=== PATIENT | female | born 2000 | race Caucasian/White ===

== ENCOUNTER 2023-11-07 14:36 | Emergency (ER) | payer BC, SELFPAY ==
[2023-11-07 14:44] VITALS: BP 102/71
--- NOTE | 2023-11-07 16:04 | ED.GENMED ---
History of Present Illness
<Melanie Young PA-C - Last Filed: 11/07/23 18:45>
General
Chief Complaint: Cold/Flu/URI Symptoms
Source: patient
Exam Limitations: none
Time Seen by Provider: 11/07/23 15:49
Nursing documentation reviewed up to this point in time: agreed with
Travel History
Have you had any contact with someone who has COVID-19?: No
Do you have any symptoms of coronavirus? Fever > 100 degrees, chills, cough, shortness of breath, sore throat, loss of taste or smell, muscle aches, or headache?: No
History of Present Illness
History of Present Illness:
Patient is a 23-year-old female with no significant past medical history presenting for evaluation of upper respiratory symptoms persisting over the past 10 days. Patient reports initial symptom onset about 10 days ago on 10/29/23 with swollen
tonsils with white patches. She was seen in urgent care at that time and started on empiric course of amoxicillin for presumed strep throat. Both rapid strep test and throat culture did come back negative. Patient did end up mostly completing
course of amoxicillin but stopped about 1 day early. Symptoms never fully resolved and over the past week progressed to fatigue, generalized body aches, and productive cough.
She denies any fever, chills, nausea, vomiting, or diarrhea. Patient denies any chest pain or shortness of breath. Patient last period was about 1 week ago.
Review of Systems
<Melanie Young PA-C - Last Filed: 11/07/23 18:45>
Review of Systems
Allergies reviewed?: Yes
All Other Systems: ROS reviewed and negative except as documented in HPI and ROS
Phy Exam
<Melanie Young PA-C - Last Filed: 11/07/23 18:45>
Physical Exam
Physical Exam:
Vitals: Patient's vital signs are stable. Afebrile
General: Patient is well appearing, no acute distress. Nontoxic-appearing
Skin: Warm and dry, no rashes or lesions. No evidence of jaundice
Head: Normocephalic, atraumatic
Eyes: Sclera nonicteric. EOMs intact. No nystagmus.
Throat: Erythema noted to posterior pharynx with some tonsillar edema. No evidence of tonsillar exudates. Uvula midline. Protecting airway. Trachea midline. No trismus.
Neck: Normal ROM, no cervical spine tenderness, no meningismus
Cardiac: Regular rate and rhythm, no murmurs.
Pulm: Normal respiratory effort, no wheezes, rales, rhonchi heard on exam.
Abdomen: No abdominal tenderness. No palpable organomegaly.
Extremities: No evidence of cyanosis or edema.
Neuro: AAOx3. CN II-XII intact. No focal neurologic deficits.
Psychiatric: Normal affect.
Course
<Melanie Young PA-C - Last Filed: 11/07/23 18:45>
Orders/Labs/Results
Orders:
Orders
11/07/23 16:12
0.9% Sodium Chloride 1000 ml [Nss] 1,000 ml IV BOLUS
Dexamethasone Sod Phosphate [Decadron] 10 mg IV NOW STA
11/07/23 16:13
Test Result ONCE
11/07/23 16:48
Complete Blood Count/With Diff Urgent
Comprehensive Metabolic Panel Urgent
HCG, Serum Qualitative Screen Urgent
Influenza A+B Rapid Molecular Urgent
VANE Source: Nasal Swab
Specimen Description:
11/07/23 16:53
COVID-19 Antigen Urgent
Source: Nasal Swab
Monotest Urgent
Abnormal Lab Results
11/07/23 11/07/23
16:48 16:53
RBC 4.10 L 10^6/uL
(4.20-5.40)
Hct 35.5 L %
(37.0-47.0)
Absolute Monos (auto) 0.7 H 10^3/uL
(0.1-0.6)
Glucose 109 H mg/dl
(70-99)
Monoscreen Positive A
(Negative)
11/07/23 16:48
11/07/23 16:48
Vital Signs
Initial and Last Documented VS:
Initial Vital Signs
Temp Pulse Resp BP Pulse Ox
98.2 F 88 18 102/71 99
11/07/23 14:44 11/07/23 14:44 11/07/23 14:44 11/07/23 14:44 11/07/23 14:44
Last Documented Vital Signs
Temp Pulse Resp BP Pulse Ox
98.2 F 88 18 113/75 99
11/07/23 14:44 11/07/23 14:44 11/07/23 14:44 11/07/23 16:34 11/07/23 17:00
<Linnette Simms MD - Last Filed: 11/07/23 17:04>
Orders/Labs/Results
Orders:
Orders
11/07/23 16:12
0.9% Sodium Chloride 1000 ml [Nss] 1,000 ml IV BOLUS
Dexamethasone Sod Phosphate [Decadron] 10 mg IV NOW STA
11/07/23 16:13
Test Result ONCE
11/07/23 16:48
Complete Blood Count/With Diff Urgent
Comprehensive Metabolic Panel Urgent
HCG, Serum Qualitative Screen Urgent
Influenza A+B Rapid Molecular Urgent
VANE Source: Nasal Swab
Specimen Description:
11/07/23 16:53
COVID-19 Antigen Urgent
Source: Nasal Swab
Monotest Urgent
Abnormal Lab Results
11/07/23 11/07/23
16:48 16:53
RBC 4.10 L 10^6/uL
(4.20-5.40)
Hct 35.5 L %
(37.0-47.0)
Absolute Monos (auto) 0.7 H 10^3/uL
(0.1-0.6)
Glucose 109 H mg/dl
(70-99)
Monoscreen Positive A
(Negative)
11/07/23 16:48
11/07/23 16:48
Vital Signs
Initial and Last Documented VS:
Initial Vital Signs
Temp Pulse Resp BP Pulse Ox
98.2 F 88 18 102/71 99
11/07/23 14:44 11/07/23 14:44 11/07/23 14:44 11/07/23 14:44 11/07/23 14:44
Last Documented Vital Signs
Temp Pulse Resp BP Pulse Ox
98.2 F 88 18 113/75 99
11/07/23 14:44 11/07/23 14:44 11/07/23 14:44 11/07/23 16:34 11/07/23 17:00
<Melanie Young PA-C - Last Filed: 11/07/23 18:45>
MDM/Problems Addressed
Differential Diagnosis Includes:
Not limited to: COVID, flu, mono, other viral pharyngitis, bronchitis, anemia, pneumonia
MDM/Problems Addressed:
Patient is a 23-year-old female presenting with 10 days of upper respiratory symptoms and associated fatigue. Mild productive cough. No fever, chest pain, shortness of breath. Strep negative about 9 days ago but did complete approximately 9 days
of amoxicillin. Vital stable. Patient is afebrile. Exam as above. Patient is nontoxic-appearing. No meningeal signs. Heart regular rate and rhythm. Lungs clear bilaterally. No evidence of bacterial pharyngitis. No rash. Abdomen soft and
nontender. Suspect likely viral in origin. Given duration of symptoms�will check basic labs, viral swabs. Will check monoscreen. IV fluids and IV Decadron. Patient not hypoxic, afebrile, clear lung sounds bilaterally�very low suspicion for
pneumonia. Will monitor closely reassess.
Labs noted. No leukocytosis or anemia. No other clinically significant abnormalities on labs. COVID and flu negative. Patient did test positive for mono. This would explain patient's symptoms. Patient has remained stable, nontoxic-appearing
while in emergency department. Stable for outpatient management with supportive care. Fluids, Tylenol/Motrin, rest. Primary care follow-up as needed. Return precautions discussed at length. Recommended to avoid contact sports for the next 1 to
2 months or until cleared by primary care. Patient comfortable with plan. All questions answered
Chronic conditions affecting care:
N/A
Acute Exacerbation and/or Progression of Chronic Illness:
N/A
<Melanie Young PA-C - Last Filed: 11/07/23 18:45>
*Pulse Oximetry
Patient hypoxic: no
*EKG
Interpreted by ED Provider?: NA
*Cable Wirer Interpretation
Rate: Cable Wirer- N/A
*Critical Care Note
Total Time (30-74mins, 75-104mins- exclusive of procedures): Not Applicable
ED Attending Note
<Melanie Young PA-C - Last Filed: 11/07/23 18:45>
-
Portions of this chart may have been created with voice recognition software.� Occasional wrong word or��sound alike� substitutions may have occurred due to the inherent limitations of voice recognition software.
<Linnette Simms MD - Last Filed: 11/07/23 17:04>
ED Attending Note
Patient seen and examined by attending physician: Yes
I performed the substantive portion of visit, reviewed & personally made and approve the management plan that is documented in note by myself or TANIA.: Yes
ED Attending Note:
23-year-old female presents emergency department with 'white patches' on her tonsils seen approximately 9 to 10 days ago. She was presumptively diagnosed with strep via urgent care, but then told to discontinue the medication when culture came back
negative. Nonetheless, she reports completing a 9-day course of amoxicillin. She complains of overall fatigue, body aches, malaise, continued swollen tonsils although improved, and occasional 'wet' cough. She denies dyspnea at rest, orthopnea,
PND, leg swelling, vomiting. On exam patient is extremely well-appearing, heart regular rate and rhythm, lungs CTA, speaks in full sentences easily, no trismus, no drool. Patient has slightly enlarged tonsils without exudate, uvula midline, no
submental or floor mouth swelling or other abnormalities noted. Testing pending.
Discharge Plan
Departure
Patient Disposition: Home (Routine Discharge)
Date of Disposition: 11/07/23
Time of Disposition: 18:05
Patient with high blood pressure during this ER visit?: No
Condition: Good
Covid-19: Negative COVID-19
Discharge Problem:
Infectious mononucleosis
Instructions: Mononucleosis
Referrals:
Michela Gallegos CRNP [Family Provider] - Follow up in 5-7 days
Stand Alone Forms: Return to Work
Activity Restrictions/Additional Instructions:
- Return to the emergency department with any high fevers, severe headache/neck pain, difficulty swallowing, chest pain, shortness of breath, worsening in current symptoms, or any other concerns
-It is important stay well-hydrated and get plenty of rest. You should take Motrin/Tylenol as needed for body aches/fever.
-You should avoid contact sports for the next few months until cleared by your primary care provider.
-Follow-up with your primary care provider in 1 to 2 weeks to ensure symptoms are improving.
Interventions
Interventions:
*Risk Screen - Suicide Last Done: 11/07/23 16:55
*General Assessment Last Done: 11/07/23 14:48
*Neglect/Abuse Screening Last Done: 11/07/23 17:05
ED- Fall Risk Assessment Last Done: 11/07/23 16:55
*ED COVID-19 Vaccine History Last Done: 11/07/23 14:48
*Nursing Disposition Last Done: 11/07/23 18:23
ED- Pulmonary Assessment Last Done: 11/07/23 16:54
Discharge Date and Time
Discharge Date/Time: 11/07/23 18:24
Print Language: AMERICAN
[2023-11-07 16:34] VITALS: BP 113/75
[2023-11-07 16:42] VITALS: BMI 23.6
[2023-11-07] MEDS: NSS 1000 IV (16:50)
[2023-11-07] MEDS: DECADRON 10 MG IV (16:52)
[2023-11-07 17:03] LABS: % Basophils 0.4 % (0-2); % Eosinophils 0.7 % (0-6); % Immature Granulocytes 0.2 % (0-0.5); % Lymphocytes 28.1 % (20.5-51.1); % Monocytes 9.2 % (1.7-9.3); % Neutrophils 61.4 % (42.2-75.2); Absolute Eosinophils 0.1 10^3/uL (0-0.7); Absolute Lymphocytes 2.3 10^3/uL (1.2-3.4); Absolute Monocytes 0.7 10^3/uL (0.1-0.6); Absolute Neutrophils 4.9 10^3/uL (1.4-6.5); Hematocrit 35.5 % (37.0-47.0); Hemoglobin 12.6 g/dL (12.0-16.0); Mean Corp Hgb Conc. 35.5 g/dL (33.0-37.0); Mean Corpuscular Hgb 30.7 pg (27.0-31.0); Mean Corpuscular Volume 86.6 fL (81.0-99.0); Mean Platelet Volume 9.7 fL (7.4-10.4); Nucleated Red Blood Cells % 0 %; Platelet Count 262 10^3/uL (130-400); Red Cell Dist. Width 12.3 % (11.5-14.5)
[2023-11-07 17:13] LABS: ALT (SGPT) 23 U/L (0-35); AST (SGOT) 27 U/L (14-36); Albumin 4.2 g/dl (3.5-5.0); Alkaline Phosphatase 67 U/L (38-126); Blood Urea Nitrogen 11 mg/dl (7-17); Calcium 9.4 mg/dl (8.4-10.2); Carbon Dioxide 29 mmol/L (22-30); Chloride 103 mmol/L (98-107); Estimated Creatinine Clearance 111 ml/min; Glucose 109 mg/dl (70-99); Potassium 4.2 mmol/L (3.5-5.1); Sodium 140 mmol/L (135-145); Total Bilirubin 0.4 mg/dl (0.2-1.3); Total Protein 7.4 g/dl (6.3-8.2); eGFR > 60.00
[2023-11-07 17:16] LABS: COVID-19 Antigen Negative (Negative)
[2023-11-07 17:21] LABS: HCG, Serum Qualitative Screen Negative
[2023-11-07 17:36] LABS: Monotest Positive (Negative)
== END 2023-11-07 18:24 | disposition home or self-care (01) ==
LOC: EMR 14:36
PROVIDERS: Physician Assistant; EMERGENCY PHYSICIAN Emergency Medicine; FAMILY PHYSICIAN Nurse Practitioner Primary Care
DX: B27.90 Infectious mononucleosis, unspecified without complication (principal); Z11.52 Encounter for screening for COVID-19; Z88.8 Allergy status to other drugs, medicaments and biological substances
CPT/HCPCS: 99284; 96374; 96361; 80053; 84703; 85025; 86308; 87502; 87811